=== PATIENT | male | born 1985 | race Caucasian/White ===

== ENCOUNTER 2024-02-29 06:19 | Day surgery (SDC) | payer BC ==
[2024-02-29] MEDS: Lactated Ringers 1,000 ML IV SCH (06:50)
[2024-02-29] MEDS ORDERED: propofoL 50 ML ONE (07:25)
[2024-02-29] MEDS ORDERED: Lactated Ringers 1,000 ML IV SCH (08:45)
[2024-02-29 08:49] VITALS: BP 119/80; PULSE 83
== END 2024-02-29 09:00 | disposition home or self-care (01) ==
LOC: MW.SDS 06:19
PROVIDERS: ATTEND Surgery
DX: K57.31 Diverticulosis of large intestine without perforation or abscess with bleeding (principal); K52.9 Noninfective gastroenteritis and colitis, unspecified; I10 Essential (primary) hypertension; E11.9 Type 2 diabetes mellitus without complications; E78.00 Pure hypercholesterolemia, unspecified; Z87.891 Personal history of nicotine dependence; Z98.890 Other specified postprocedural states; Z79.4 Long term (current) use of insulin; Z79.899 Other long term (current) drug therapy
CPT/HCPCS: 45380; 82947; J2704; J7120; 00811